=== PATIENT | male | born 1965 | race Caucasian/White ===

== ENCOUNTER 2021-04-03 14:09 | Emergency (ER) | payer OTHER ==
[~2021-04-03] VITALS: Ht 175.3 cm; Wt 72.6 kg
[2021-04-03 14:22] VITALS: BP 00/00
== END 2021-04-03 14:22 ==
LOC: M.ERS 14:09
DX: I46.9 Cardiac arrest, cause unspecified (principal); Z20.822 Contact with and (suspected) exposure to COVID-19; Z86.711 Personal history of pulmonary embolism